=== PATIENT | female | born 1960 | race Two or more races ===

== ENCOUNTER 2024-06-02 20:41 | Inpatient (IN) | payer BC, OTHER ==
[~2024-06-02] VITALS: Ht 160 cm; Wt 85.9 kg
[2024-06-02 21:10] LABS: Basophils # (auto) 0.1 10 ^3/uL (0-0.2); Basophils % (auto) 0.5 % (0.0-2.0); Eosinophils # (auto) 0 10 ^3/uL (0-0.8); Eosinophils % (auto) 0.1 % (0.0-7.0); Hematocrit 39.8 % (36.0-46.0); Hemoglobin 13.1 g/dL (12.2-16.2); Lymphocytes # (auto) 1.3 10 ^3/uL (0.4-5.4); Lymphocytes % (auto) 8.2 % (10.0-50.0); Mean Corpuscular Volume 87.8 fL (80.0-100.0); Monocytes # (auto) 0.8 10 ^3/uL (0-1.3); Monocytes % (auto) 5.1 % (0.0-12.0); Neutrophils # (auto) 13.5 10 ^3/uL (1.6-8.6); Neutrophils % (auto) 86.1 % (37.0-80.0); Nucleated Red Blood Cells % 0.2 %; Platelet Count (auto) 326 10^3/uL (140-450); Red Blood Cells 4.53 10^6/uL (4.0-5.20); Red Cell Distribution Width 13.7 % (11.8-14.3); White Blood Cell 15.7 10^3/uL (4.4-10.8)
[2024-06-02 21:23] LABS: Chloride 107 mmol/L (98-107); Sodium 138 mmol/L (136-145)
[2024-06-02 21:24] LABS: Anion Gap 12 (5-15)
[2024-06-02 21:29] LABS: BUN/Creatinine Ratio 19.1 (10.0-20.0); Blood Urea Nitrogen 18 mg/dL (9-23); Calcium 10.6 mg/dL (8.7-10.4); Carbon Dioxide 19 mmol/L (20-31); Glucose 144 mg/dL (74-106); Potassium 3.5 mmol/L (3.5-5.1)
--- NOTE | 2024-06-02 21:32 | ED.PDOC ---
History of Present Illness HPI Comments 63 y/o F, with a history of CVA, HLD, HTN, hypothyroidism, is [id number] daughter for c/o non-radiating, left-sided chest pain, nausea, vomiting, headache, dizziness, and fever, today. Patient is a Nepalese speaker and, per daughter, who is acting as her blood tester, endorses on unprovoked onset of symptoms at 1300, this evening. She denies any shortness of breath, arm pain, hematemesis, chills, or other associated symptoms or modifiers at this time. Chief Complaint: Chest Pain Time Seen by MD: 21:10 Reviewed Notes: Nurses Notes, Medications, Allergies Allergies: Coded Allergies: NO KNOWN ALLERGIES (Unverified , 06/02/24) Information Source: Patient Mode of Arrival: Ambulatory Severity: Moderate Timing: Hours Duration: Since onset Prehospital treatment: None Past Medical History PAST MEDICAL HISTORY: CVA, High Lipids, HTN, Thyroid (hypothyroidism) Surgical History: Denies all surgeries SOCIAL CONTACT WORKER History: Denies all SOCIAL CONTACT WORKER Hx Family History Family History: Unknown Social History Smoker: Non-Smoker Alcohol: Denies ETOH Use Drugs: Denies Drug Use Lives In: Home All Other Systems: Reviewed and Negative (negative unless stated in HPI) Physical Exam General Appearance: No Apparent Distress, Normal HEENT: Normal ENT Inspection, Pharynx Normal, TMs Normal Neck: Full Range of Motion, Non-Tender, Normal, Normal Inspection Respiratory: Chest Non-Tender, Lungs Clear, No Accessory Muscle Use, No Respiratory Distress, Normal Breath Sounds Cardiovascular: No Edema, No JVD, No Murmur, No Gallop, Normal Peripheral Pu lses, Regular Rate/Rhythm Breast Exam: Deferred Gastrointestinal: No Organomegaly, Non Tender, No Pulsatile Mass, Normal Bowel Sounds, Soft Genitalia: Deferred Pelvic: Deferred Rectal: Deferred Extremities: No calf tenderness, Normal capillary refill, Normal inspection, Normal range of motion, Non-tender, No pedal edema Musculoskeletal : Apperance: Normal Neurologic: Alert, 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 Was a procedure done?: No Differential Dx Considerations may include: IN, ACS, costochondritis, pericarditis, viral syndrome, URI, among others X-Ray, Labs, Meds, VS Vital Signs Date Time Temp Pulse Resp B/P (MAP) Pulse Ox O2 Delivery O2 Flow Rate FiO2 06/02/24 22:50 81 20 99 Room Air* 0 21 06/02/24 22:48 81 20 151/71 06/02/24 22:42 20 81 151/71 (97) 99 06/02/24 21:54 83 06/02/24 20:52 81 06/02/24 20:50 100.7 81 18 154/71 (98) 97 100.7 Lab Test 06/02/24 21:40 06/02/24 20:58 Range/Units Lactic Acid Level 1.7 0.4-2.0 mmol/L Troponin I High Sensitivity 60 *H 62 *H </=34 ng/L White Blood Count 15.7 H 4.4-10.8 10^3/uL Red Blood Count 4.53 4.0-5.20 10^6/uL Hemoglobin 13.1 12.2-16.2 g/dL Hematocrit 39.8 36.0-46.0 % Mean Corpuscular Volume 87.8 80.0-100.0 fL Mean Corpuscular Hemoglobin 29.0 28.0-32.0 pg Mean Corpuscular Hemoglobin Concent 33.0 32.0-36.0 g/dL Red Cell Distribution Width 13.7 11.8-14.3 % Platelet Count 326 140-450 10^3/uL Mean Platelet Volume 7.1 6.9-10.8 fL Neutrophils (%) (Auto) 86.1 H 37.0-80.0 % Lymphocytes (%) (Auto) 8.2 L 10.0-50.0 % Monocytes (%) (Auto) 5.1 0.0-12.0 % Eosinophils (%) (Auto) 0.1 0.0-7.0 % Basophils (%) (Auto) 0.5 0.0-2.0 % Neutrophils # (Auto) 13.5 H 1.6-8.6 10 ^3/uL Lymphocytes # (Auto) 1.3 0.4-5.4 10 ^3/uL Monocytes # (Auto) 0.8 0-1.3 10 ^3/uL Eosinophils # (Auto) 0 0-0.8 10 ^3/uL Basophils # (Auto) 0.1 0-0.2 10 ^3/uL Nucleated Red Blood Cells 0.2 % Sodium Level 138 136-145 mmol/L Potassium Level 3.5 3.5-5.1 mmol/L Chloride Level 107 98-107 mmol/L Carbon Dioxide Level 19 L 20-31 mmol/L Anion Gap 12 5-15 Blood Urea Nitrogen 18 9-23 mg/dL Creatinine 0.94 0.550-1.02 mg/dL Glomerular Filtration Rate Calc 67 >90 mL/min BUN/Creatinine Ratio 19.1 10.0-20.0 Serum Glucose 144 H 74-106 mg/dL POC Glucose 143 H 70-106 mg/dl Calcium Level 10.6 H 8.7-10.4 mg/dL Current Medications Medications (Trade) Dose Ordered Sig/Fatmata Route Start Time Stop Time Status Last Admin Sodium Chloride 1,000 ml @ 1,000 mls/hr Q1H ONCE IV 06/02/24 21:15 06/02/24 22:14 DC 06/02/24 22:40 Ondansetron HCl (Zofran) 4 mg ONCE ONCE IV 06/02/24 21:15 06/02/24 21:16 DC 06/02/24 22:47 Famotidine (Pepcid Injection) 20 mg ONCE ONCE IV 06/02/24 21:15 06/02/24 21:16 DC 06/02/24 22:47 Morphine Sulfate 4 mg ONCE ONCE IV 06/02/24 21:15 06/02/24 21:16 DC 06/02/24 22:48 [place] [address] Ph: [phone] DIAGNOSTIC IMAGING Diagnostic Imaging Report : [id number] Signed PATIENT: AMNA RAINEY ACCT: [id number] UNIT: [id number] : 1960 LOC: ER ROOM / BED: / AGE / SEX: 63 / F ADM STATUS: REG ER SERVICE 00 ORDERING PHYSICIAN: NIVIA AARON MD PROCEDURE(s): HWOCT - HEAD WITHOUT CONTRAST REASON: ams, nausea, vomiting ORDER NUMBER(s): [id number], ACCESSION NUMBER(s): [id number] CT HEAD WITHOUT CONTRAST INDICATION: ams, nausea, vomiting COMPARISON: None TECHNIQUE: CT of the head without intravenous contrast. RADIATION DOSE: CTDIvol: 52.21 mGy, DLP: 941.49 mGy*cm FINDINGS: There is no evidence of intracranial hemorrhage, infarct, extra-axial collection, mass effect, midline shift, herniation or hydrocephalus. Several small scattered foci of calcification are noted in both cerebral hemispheres most likely representing granulomas. The ventricles, sulci and cisterns are normal. The araujo-white differentiation is intact. Visualized paranasal sinuses and mastoid air cells are clear. Soft tissues and osseous structures are unremarkable. IMPRESSION: No acute intracranial abnormality identified. ATED BY: MANUEL CLEVELAND MD DICTATED DATE/TIME: 06/02/242146 SIGNED BY: MANUEL CLEVELAND MD SIGNED DATE/TIME: 06/02/242146 CC: [place] [address] Ph: [phone] DIAGNOSTIC IMAGING Diagnostic Imaging Report : [id number] Signed PATIENT: AMNA RAINEY ACCT: [id number] UNIT: [id number] : 1960 LOC: ER ROOM / BED: / AGE / SEX: 63 / F ADM STATUS: REG ER SERVICE 00 ORDERING PHYSICIAN: NIVIA AARON MD PROCEDURE(s): CXRP - CHEST PORTABLE REASON: headache, htn, nausea ORDER NUMBER(s): [id number], ACCESSION NUMBER(s): [id number] CHEST RADIOGRAPH Indication: headache, htn, nausea Technique: Single frontal view of the chest was obtained Comparison: None FINDINGS: Lines and Tubes: None Lungs: No focal consolidation. Pleura: No effusion. No pneumothorax. Cardiomediastinal contours: Unremarkable Bones: No acute osseous abnormality. IMPRESSION: 1. No acute cardiopulmonary disease. ATED BY: VALARIE RIVER Jr., DO DICTATED DATE/TIME: 06/02/242130 SIGNED BY: VALARIE RIVER Jr., DO SIGNED DATE/TIME: 06/02/242130 CC: Time of 1ST Reevaluation: 21:40 Reevaluation 1ST: Unchanged Patient Education/Counseling: Diagnosis, Treatment Family Education/Counseling: No Family Present Departure 1 Departure Time of Disposition: 23:26 (Patient presented with chest pain that was concerning for possible STEMI, ACS, PE, Pneumonia, Muscle Strain, COPD, Dissection. Data: 1. I ordered and reviewed the result of at least 3 labs including a CBC, BMP, and Troponin. 2. I independently interpreted the following tests: EKG which shows sinus tachycardia and Chest X-ray which shows benign chest.Risk:This patient has a high risk of morbidity due to further diagnostic testing or treatment and may suffer from an acute cardiac or respiratory disorder. Workup reveals concern for ACS and also with a fever but patient is not septic and patient should be admitted for further workup and possible expert consultation. We will not give patient full fluid boluses patient appears mildly volume overloaded.) Impression: Primary Impression: Acute chest pain Additional Impression: Fever Qualified Codes: R50.9 - Fever, unspecified Disposition: ADMITTED INPATIENT Admit to: Med Surg Condition: Serious Critical Care Note Critical Care Time?: Yes Critical care comment: Acute chest pain Authorized and Performed by: Nivia Aaron MD Total critical care time: Approximately 39 minutes Due to a high probability of clinically significant, life threatening deterioration, the patient required my highest level of preparedness to intervene emergently and I personally spent this critical care time directly and personally managing the patient. This critical care time included obtaining a history; examining the patient; pulse oximetry; ordering and review of studies; arranging urgent treatment with development of a management plan; evaluation of patient's response to treatment; frequent reassessment; and, discussions with other providers. This critical care time was performed to assess and manage the high probability of imminent, life-threatening deterioration that could result in multi-organ failure. It was exclusive of separately billable procedures and treating other patients and teaching time. Please see my other sections and the rest of the note for further information on patient assessment and treatment. Stability Stability form required: No Heart Score Heart Score: Heart Score Response (Comments) Value History N/A 0 EKG N/A 0 Age N/A 0 Risk Factors N/A 0 Troponin N/A 0 Total 0 I personally scribed for NIVIA AARON MD ([email or web address]) on 06/02/24 at 21:32. Electronically submitted by Meir Nicholas ([email or web address]). I personally scribed for NIVIA AARON MD ([email or web address]) on 06/02/24 at 22:05. Electronically submitted by Meir Nicholas ([email or web address]). NIVIA AARON MD Jun 02, 2024 21:32
--- NOTE | 2024-06-02 21:50 | DVH ---
CT HEAD WITHOUT CONTRAST INDICATION: ams, nausea, vomiting COMPARISON: None TECHNIQUE: CT of the head without intravenous contrast. RADIATION DOSE: CTDIvol: 52.21 mGy, DLP: 941.49 mGy*cm FINDINGS: There is no evidence of intracranial hemorrhage, infarct, extra-axial collection, mass effect, midli ne shift, herniation or hydrocephalus. Several small scattered foci of calcification are noted in bot h cerebral hemispheres most likely representing granulomas. The ventricles, sulci and cisterns are no rmal. The araujo-white differentiation is intact. Visualized paranasal sinuses and mastoid air cells ar e clear. Soft tissues and osseous structures are unremarkable. IMPRESSION: No acute intracranial abnormality identified.
[2024-06-02] MEDS: SODIUM CHLORIDE 0.9% 1,000 ML IV ONE (22:40)
[2024-06-02] MEDS: ONDANSETRON HCL 4 MG/2 ML VIAL IV ONE (22:47)
[2024-06-02] MEDS: FAMOTIDINE (10MG/ML) 2ML VL IV ONE (22:47)
[2024-06-02] MEDS: MORPHINE SULFATE 4 MG/ML SYR/VIAL IV ONE (22:48)
[2024-06-02 22:50] VITALS: PULSE 81; RESP 20; O2SAT 99
[2024-06-03] VITALS (9 sets, daily range): BP systolic 109–153; BP diastolic 51–71; PULSE 64–76; RESP 16–18; TEMP 97.6–99.1; O2SAT 94–97
[2024-06-03] MEDS: CEFEPIME 2GM/50ML NS 50 ML IV ONE (00:59)
[2024-06-03] MEDS ORDERED: HYDROcodone-ACET 5/325MG TAB PO PRN ×2 (01:45→07:30)
[2024-06-03] MEDS ORDERED: VANCOMYCIN PER PHARMACY 0 MG IV SCH (01:45)
[2024-06-03] MEDS: VANCOMYCIN 1GM/250ML KIT 200 ML IV ONE ×2 (02:08)
--- NOTE | 2024-06-03 02:10 | DVHHPRES ---
History of Present Illness Resident Creating Document: DARIUS FRAZIER RESDIENT History of Present Illness This is a 63-year-old female with past medical history of CVA, coronary artery disease, dyslipidemia, hypertension, hypothyroidism brought to the hospital due to at the mental status. Per patient's daughter, today at 6:00 p.m. she got chest pain and shortness of breaths at work place, upon blood pressure measurement found to of high BP 200, recommended to go to ER, subsequently the patient get more confused and altered. He also reported fever, dysuria, frequency, nausea, vomiting, headache, and dizziness. She denies cough, abdominal, bowel habit changes, or any new onset motor or sensory deficits. PMHx: CVA, coronary artery disease, dyslipidemia, hypertension, hypothyroidism PSHx: Not significant Family history: Noncontributory Social history: Ex-smoker, denies any other drug use Home medication: Losartan, levothyroxine Allergic history: No known allergy Review of Systems Review of Systems Patient was altered, review of systems could not obtain. History was taken from patient's daughter. Allergies: Coded Allergies: NO KNOWN ALLERGIES (Unverified , 06/02/24) Medications Current Medications Medications Dose Ordered Sig/Fatmata Route Start Time Stop Time Status Last Admin Dose Admin Acetaminophen 650 mg Q6HP PRN PO 06/03/24 01:45 Acetaminophen/ Hydrocodone Bitart 1 tab Q4HP PRN PO 06/03/24 01:45 Enoxaparin Sodium 40 mg DAILY SC 06/03/24 10:00 Aspirin 81 mg DAILY PO 06/03/24 10:00 Atorvastatin Calcium 40 mg HS PO 06/03/24 22:00 Vancomycin HCl 0 ml @ 0 mls/hr UD IV 06/03/24 01:45 UNV Piperacillin Sod/ Tazobactam Sod 100 ml @ 25 mls/hr Q8HR IV 06/03/24 06:00 Pantoprazole Sodium 40 mg DAILY IV 06/03/24 10:00 Sodium Chloride 1,000 ml @ 75 mls/hr [id number] IV 06/03/24 01:45 Lisinopril 5 mg DAILY PO 06/03/24 10:00 UNV Exam Vital Signs Vital Signs Date Time Temp Pulse Resp B/P (MAP) Pulse Ox O2 Delivery O2 Flow Rate FiO2 06/03/24 01:34 83 06/02/24 23:49 20 142/65 06/02/24 22:50 99 Room Air* 0 21 06/02/24 20:50 100.7 100.7 Exam General Appearance: Alert, Oriented to person, disoriented to time and place, lethargic HEENT: Atraumatic, PERRLA, EOMI, Mucous membrane moist/pink Respiratory: Clear to auscultation, Normal air movement Cardiovascular: Regular rate, Normal S1, Normal S2, No murmurs, no chest wall tenderness Abdominal: Mild suprapubic tenderness Extremities: No clubbing, No cyanosis, No edema, Normal pulses, No te nderness/swelling Skin: No rashes, No breakdown, No significant lesion Neuro: Normal gait, Normal speech, Strength at 5/5 X4 ext, Normal tone, Sensation intact, Cranial nerves 3-12 NL, Reflexes 2+ Psych/Mental Status: Mental status NL, Mood NL Labs/Xrays Labs Test 06/03/24 01:36 06/02/24 23:47 06/02/24 21:40 06/02/24 20:58 Range/Units Troponin I High Sensitivity 76 *H </=34 ng/L Lactic Acid Level 1.7 0.4-2.0 mmol/L White Blood Count 15.7 H 4.4-10.8 10^3/uL Red Blood Count 4.53 4.0-5.20 10^6/uL Hemoglobin 13.1 12.2-16.2 g/dL Hematocrit 39.8 36.0-46.0 % Mean Corpuscular Volume 87.8 80.0-100.0 fL Mean Corpuscular Hemoglobin 29.0 28.0-32.0 pg Mean Corpuscular Hemoglobin Concent 33.0 32.0-36.0 g/dL Red Cell Distribution Width 13.7 11.8-14.3 % Platelet Count 326 140-450 10^3/uL Mean Platelet Volume 7.1 6.9-10.8 fL Neutrophils (%) (Auto) 86.1 H 37.0-80.0 % Lymphocytes (%) (Auto) 8.2 L 10.0-50.0 % Monocytes (%) (Auto) 5.1 0.0-12.0 % Eosinophils (%) (Auto) 0.1 0.0-7.0 % Basophils (%) (Auto) 0.5 0.0-2.0 % Neutrophils # (Auto) 13.5 H 1.6-8.6 10 ^3/uL Lymphocytes # (Auto) 1.3 0.4-5.4 10 ^3/uL Monocytes # (Auto) 0.8 0-1.3 10 ^3/uL Eosinophils # (Auto) 0 0-0.8 10 ^3/uL Basophils # (Auto) 0.1 0-0.2 10 ^3/uL Nucleated Red Blood Cells 0.2 % Sodium Level 138 136-145 mmol/L Potassium Level 3.5 3.5-5.1 mmol/L Chloride Level 107 98-107 mmol/L Carbon Dioxide Level 19 L 20-31 mmol/L Anion Gap 12 5-15 Blood Urea Nitrogen 18 9-23 mg/dL Creatinine 0.94 0.550-1.02 mg/dL Glomerular Filtration Rate Calc 67 >90 mL/min BUN/Creatinine Ratio 19.1 10.0-20.0 Serum Glucose 144 H 74-106 mg/dL POC Glucose 143 H 70-106 mg/dl Calcium Level 10.6 H 8.7-10.4 mg/dL Assessment/Plan Assessment/Plan Acute metabolic encephalopathy, likely due to sepsis Sepsis, likely due to UTI NSTEMI, type 2, likely due to above Head CT scan shows no acute intracranial abnormalities Urine/blood culture Empiric antibiotic vancomycin and Zosyn IV fluid History of coronary artery disease History of CVA, with no residual deficit History of hypertension History of dyslipidemia Hypothyroidism Continue home meds DIET: NPO DVT PROPHYLAXIS: Lovenox GI PROPHYLAXIS:: Protonix CODE STATUS: Goal of care discussed for more than 18 minutes, full code DISPOSITION: Med surge Patient's status and plan discussed with the patient's daughter and son at the bedside. Case discussed with Dr. Bowers Plan discussed with: Patient, Other (RN) My Orders Orders - DARIUS FRAZIER Procedure Category Date Status Time Admit ADMIT 06/03/24 Transmitted 01:34 Code Status CODE 06/03/24 Transmitted 01:34 Vital Signs ISAIAH 06/03/24 In Process 01:34 Review Orders With ISAIAH 06/03/24 In Process Adm. 01:34 Consistent DIET 06/03/24 Transmitted Carb(Ccho)Diabetes Breakfast Acetaminophen Tablet PHA 06/03/24 In Process (Tylenol Tablet) 01:45 Notify Md Of Changes ISAIAH 06/03/24 In Process From Base 01:34 Advance Directive ISAIAH 06/03/24 In Process 01:34 Echo 2d Mode Cardiac US 06/03/24 Logged DOP 01:34 Urinalysis LAB 06/03/24 In Process 01:34 Lipid Panel LAB 06/03/24 Logged 01:34 Patient Condition ORDERS 06/03/24 Transmitted 01:34 Allergies ISAIAH 06/03/24 In Process 01:34 Hydrocodone-Acet PHA 06/03/24 In Process 5/325mg Tab ([place] 01:45 Hemoglobin A1c LAB 06/03/24 Logged 01:34 Enoxaparin Sodium PHA 06/03/24 In Process (Lovenox) 10:00 Stat Ekg For Chest ISAIAH 06/03/24 In Process Pain 01:34 Notify Md Of Changes [facility] 06/03/24 In Process From Base 01:34 Tapper Operator For ISAIAH 06/03/24 In Process 24 Hours 01:34 Emergency Dysrhythmia ISAIAH 06/03/24 In Process Protocol 01:34 Rhythm Strips Once ISAIAH 06/03/24 In Process Every Shift 01:34 Urine Bacterial MERT 06/03/24 Logged Culture 01:34 Drug Screen LAB 06/03/24 Logged 01:34 Mrsa Screen MERT 06/03/24 Logged 01:34 Aspirin Tablet PHA 06/03/24 In Process 10:00 Atorvastatin (Lipitor) PHA 06/03/24 In Process 22:00 Vancomycin Per PHA 06/03/24 Pending Pharmacy 01:45 Piperacillin-Tazob PHA 06/03/24 In Process 3.375gm (Zosyn 3.375g 06:00 Pantoprazole PHA 06/03/24 In Process (Protonix) 10:00 Magnesium LAB 06/03/24 Logged 01:34 Vitamin B12 LAB 06/03/24 Logged 01:34 Vitamin D, 25-Hydroxy LAB 06/03/24 Logged 01:34 Thyroid Stimulating LAB 06/03/24 Logged Hormone 01:34 Ammonia LAB 06/03/24 Logged 01:34 Sodium Chloride 0.9% PHA 06/03/24 In Process 01:45 Sodium Chloride 0.9% PHA 06/03/24 In Process 01:45 Complete Blood Count LAB 06/03/24 Logged 04:00 Comprehensive LAB 06/03/24 Logged Metabolic Panel 04:00 Lisinopril Tablet PHA 06/03/24 Logged (Zestril Tablet) 10:00 Lisinopril Tablet PHA 06/03/24 Logged (Zestril Tablet) 02:15 Amlodipine Tablet PHA 06/03/24 Logged (Norvasc Tablet) 02:15 Date of Service: Jun 03, 2024 Billing Provider: DENAE BOWERS MD Common Visit Codes: 61704-DEXYTUA INP/OBS CARE (HIGH) Secondary Visit Codes: 72574-APBSBPJL CARE PLAN 30 MINUTES DARIUS FRAZIER RESDIENT Jun 03, 2024 02:10 DENAE BOWERS MD Jun 03, 2024 11:05
[2024-06-03] MEDS: SODIUM CHLORIDE 0.9% 1,000 ML IV ONE (02:14)
[2024-06-03] MEDS: amLODIPine BESYLATE 5 MG TAB PO ONE (02:45)
[2024-06-03] MEDS: LISINOPRIL 5 MG TAB PO ONE (02:46)
[2024-06-03] MEDS: PANTOPRAZOLE 40 MG/10 ML VIAL INJ IV ONE (02:51)
[2024-06-03] MEDS: ASPirin 81 mg TAB PO ONE (02:52)
[2024-06-03] MEDS: ATORVASTATIN 20 MG TAB PO ONE (02:53)
[2024-06-03] MEDS: ACETAMINOPHEN 325 MG TAB PO PRN (02:53)
[2024-06-03 02:55] LABS: Magnesium 1.9 mg/dL (1.6-2.6)
[2024-06-03 04:45] LABS: Urine Blood Negative /uL (Negative); Urine Clarity Clear (Clear); Urine Color Yellow (Yellow); Urine Mucus FEW (None Seen); Urine Protein, UAD 1+ (Negative); Urine Specific Gravity 1.023 (1.001-1.035); Urine Squamous Epithelial Cell FEW /hpf (<5); Urine Urobilinogen Normal (Negative); Urine WBC 4 /HPF (0-5)
[2024-06-03] MEDS: SODIUM CHLORIDE 0.9% 1,000 ML IV SCH (04:50)
[2024-06-03 05:05] LABS: Opiate Scree,Urine Pos (NEGATIVE)
[2024-06-03 05:07] LABS: Amphetamine Screen, Urine Neg (NEGATIVE); Barbiturate Scree,Urine Neg (NEGATIVE); Benzodiazephine Screen, Urine Neg (NEGATIVE); Cannabinoid Screen, Urine Neg (NEGATIVE); Cocaine Screen, Urine Neg (NEGATIVE); Phencyclidine Screen, Urine Neg (NEGATIVE)
[2024-06-03 05:12] LABS: COVID19 ANTIGEN SOFIA FIA NEGATIVE (NEGATIVE)
[2024-06-03 05:12] LABS: Rapid Influenza A Negative (Negative); Rapid Influenza B Negative (Negative)
[2024-06-03] MEDS: PIPERACILLIN-TAZOB 3.375GM 100 ML IV SCH (06:01)
[2024-06-03 06:47] LABS: Basophils # (auto) 0.1 10 ^3/uL (0-0.2); Basophils % (auto) 0.6 % (0.0-2.0); Eosinophils # (auto) 0 10 ^3/uL (0-0.8); Hematocrit 32.9 % (36.0-46.0); Hemoglobin 11.3 g/dL (12.2-16.2); Lymphocytes # (auto) 1.1 10 ^3/uL (0.4-5.4); Lymphocytes % (auto) 5.8 % (10.0-50.0); Mean Corpuscular Hemoglobin 30.3 pg (28.0-32.0); Mean Corpuscular Hgb Conc. 34.2 g/dL (32.0-36.0); Mean Corpuscular Volume 88.4 fL (80.0-100.0); Neutrophils # (auto) 17.4 10 ^3/uL (1.6-8.6); Neutrophils % (auto) 88.6 % (37.0-80.0); Platelet Count (auto) 279 10^3/uL (140-450); Red Blood Cells 3.72 10^6/uL (4.0-5.20); Red Cell Distribution Width 13.7 % (11.8-14.3); White Blood Cell 19.6 10^3/uL (4.4-10.8)
--- NOTE | 2024-06-03 06:56 | ECG ---
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
[2024-06-03 07:13] LABS: Albumin 4.1 g/dL (3.2-4.8); Anion Gap 8 (5-15); Aspartate Aminotransferase 40 U/L (13-40); BUN/Creatinine Ratio 18.5 (10.0-20.0); Bilirubin, Total 0.6 mg/dL (0.2-1.0); Blood Urea Nitrogen 15 mg/dL (9-23); Calcium 9.3 mg/dL (8.7-10.4); Carbon Dioxide 21 mmol/L (20-31); Sodium 140 mmol/L (136-145); Total Protein 6.7 g/dL (5.7-8.2)
[2024-06-03 07:15] LABS: Alanine Aminotransferase 46 U/L (7-40); Alkaline Phosphatase 147 U/L (46-116); Chloride 111 mmol/L (98-107); Glucose 130 mg/dL (74-106); Potassium 3.4 mmol/L (3.5-5.1)
--- NOTE | 2024-06-03 07:16 | ECG ---
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
[2024-06-03] MEDS ORDERED: ACETAMINOPHEN 500 MG TAB or CAP PO PRN (07:30)
[2024-06-03] MEDS ORDERED: ACETAMINOPHEN 325 MG TAB PO PRN (07:30)
--- NOTE | 2024-06-03 07:30 | ECG ---
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
[2024-06-03] MEDS: ENOXAPARIN SOD 40 MG/0.4 ML SYRINGE SC SCH (09:30)
[2024-06-03] MEDS: PANTOPRAZOLE 40 MG/10 ML VIAL INJ IV SCH (09:30)
[2024-06-03] MEDS: LISINOPRIL 5 MG TAB PO SCH (09:31)
[2024-06-03] MEDS: ASPirin 81 mg TAB PO SCH (09:31)
[2024-06-03] MEDS ORDERED: LOSA-534 PO (10:26)
[2024-06-03] MEDS ORDERED: LEVO150T10 PO (10:26)
[2024-06-03] MEDS ORDERED: ATOR40TA52 PO (10:26)
[2024-06-03] MEDS ORDERED: AML5T PO (10:27)
--- NOTE | 2024-06-03 11:22 | DVHPNRES ---
Progress Note Date Seen: Jun 03, 2024 Resident Creating Document: ELENA BOONE RESIDENT Medical Necessity Reason Pt with a Central, PICC or Fol: No Subjective Review of Systems Ms. Lombardi is a 63-year-old female with past medical history of CVA, hypertension, hypothyroidism, dyslipidemia who presented to the hospital with a chief complaint of confusion, shortness of breaths, chest pain and blood pressure for a day. Patient works at the [employer] when she experienced chest pain at around 1:00 p.m. on 06/02, radiating to the back, which was pressure-like, and lasted for 15 minutes associated with nausea, diaphoresis, shortness of breath, he checked her blood pressure which was 178/100 mmHg, she also reported fever, chills nausea and vomiting 5 X yesterday which was yellowish but denies any cough or phlegm, abdominal pain, dysuria or diarrhea. Patient reports taking 3 hypertensive is reporting compliance with the meds but does not remember the names. On arrival patient was febrile at 100.1 F, blood pressure was 164 systolic, CIWA saturating 94 on room air. Lactic acidosis unremarkable. WBC was 15 with increased to 19. Patient was started on IV Zosyn and vancomycin 06/02. Past medical history: See above Social chronic smoker denies drinking or illicit drug use Patient seen and examined and ultimately. Reports feeling better. Abdomen is soft and nontender. CT abdomen completed, showed Mild nonspecific fat stranding adjacent to the bilateral adrenal glands.Descending colon and Sigmoid diverticulosis without diverticulitis. 1.4 x 1.6 cm soft tissue density over the pancreatic tail. Contrast-enhanced MRI should be considered for further evaluation. Objective vital signs Vital Sign Date Time Temp Pulse Resp B/P (MAP) Pulse Ox O2 Delivery O2 Flow Rate FiO2 06/03/24 09:31 111/54 06/03/24 08:30 98.2 71 18 97 98.2 06/03/24 04:38 Room Air* 0 21 Total Intake and Output 06/02/24 06/02/24 06/03/24 15:00 23:00 07:00 Intake Total 1460 ml Balance 1460 ml medications Current Medications Medications Dose Ordered Sig/Fatmata Route Start Time Stop Time Status Last Admin Dose Admin Enoxaparin Sodium 40 mg DAILY SC 06/03/24 10:00 06/03/24 09:30 40 MG Aspirin 81 mg DAILY PO 06/03/24 10:00 06/03/24 09:31 81 MG Atorvastatin Calcium 40 mg HS PO 06/03/24 22:00 Vancomycin HCl 0 ml @ 0 mls/hr UD IV 06/03/24 01:45 UNV Piperacillin Sod/ Tazobactam Sod 100 ml @ 25 mls/hr Q8HR IV 06/03/24 06:00 06/03/24 06:01 25 MLS/HR Pantoprazole Sodium 40 mg DAILY IV 06/03/24 10:00 06/03/24 09:30 40 MG Sodium Chloride 1,000 ml @ 75 mls/hr [id number] IV 06/03/24 01:45 06/03/24 04:50 75 MLS/HR Lisinopril 5 mg DAILY PO 06/03/24 10:00 06/03/24 09:31 5 MG Acetaminophen 500 mg Q4HPRN PRN PO 06/03/24 07:30 Acetaminophen/ Hydrocodone Bitart 1 tab Q4HPRN PRN PO 06/03/24 07:30 Acetaminophen 650 mg Q6HP PRN PO 06/03/24 07:30 Examination Patient lying in bed, in no acute distress General: Obese, afebrile, palor, mucosae are moist Cardiovascular: Regular S1 and S2. No murmurs, gallops or rubs. No JVD elevation. 1+ pitting edema bilaterally Respiratory: Normal B/L air entry on room air. Clear lung sounds on auscultation Abdomen: Soft, nontender, nondistended, normoactive bowel sounds, no rebound tenderness, no organomegaly, no masses Genitourinary: Deferred MSK/skin: Mobilizes 4 limbs. Skin is dry and warm Neurological: No motor, no sensitive deficits, normal speech. Pupils are isocoric and reactive. Psych/Mental Status: A/Ox3 laboratory and microbiology Laboratory Tests 06/03/24 05:38 Test 06/03/24 05:38 Range/Units Serum Glucose 130 H 74-106 mg/dL Labs and/or images reviewed: Labs reviewed by me, Image(s) reviewed by me Problem List/Assessment/Plan Problem List/Assessment/Plan Acute metabolic encephalopathy likely secondary to sepsis Sepsis secondary to probable UTI versus gastroenteritis ? Pancreatic mass versus sepsis Head CT showed no acute intracranial abnormality. Ammonia, B12 within normal limits WBC uptrending to 19 with neutrophilic leukocytosis IV Zosyn starting 06/03 and IV vancomycin 06/02 IV NS running at 75 cc an hour Received 1 dose of IV cefepime 06/02 CT abdomen completed, showed Mild nonspecific fat stranding adjacent to the bilateral adrenal glands.Descending colon and Sigmoid diverticulosis without diverticulitis. 1.4 x 1.6 cm soft tissue density over the pancreatic tail. Contrast-enhanced MRI should be considered for further evaluation. Blood cultures pending Tumor markers ordered. MRI with IV contrast ordered. Hypertensive urgency NSTEMI type 2 Dyslipidemia 10 year ASCVD risk 11.5 Atorvastatin 40 mg daily Amlodipine 5 mg daily, losartan 50 mg daily Hypothyroidism Continue levothyroxine 100 mcg daily History of CVA Continue aspirin and atorvastatin Hypokalemia Supplemented Vitamin-D deficiency Supplemented Diet: Full liquid Lovenox 40 mg sc daily Plan discussed with patient in which all questions have been answered Goals of care with the patient for more than 20 minutes, full code status Case discussed with Dr. Baird Plan discussed with: Patient My Orders My Orders Orders - ELENA BOONE Procedure Category Date Status Time Acetaminophen Tab Or PHA 06/03/24 In Process Cap (Tylenol Tablet 07:30 Hydrocodone-Acet PHA 06/03/24 In Process 5/325mg Tab (Weld 07:30 Kub Abdomen Single XY 06/03/24 Logged View 09:28 Date of Service: Jun 03, 2024 Billing Provider: JOSE BAIRD DO Common Visit Codes: [id number] INP/OBS CARE(HIGH) ELENA BOONE Jun 03, 2024 11:22 JOSE BIARD DO Jun 06, 2024 17:46
--- NOTE | 2024-06-03 13:47 | DVH ---
Exam: CT CT AB PEL WO CON-NO ORAL OR IV History: sirs/sepsis Comparison Study: None available at time of dictation. TECHNIQUE: Multidetector CT of the abdomen and pelvis without IV contrast. Axial, coronal and sagitta l multiplanar reformats were obtained from the axial data set by the technologist. Radiation Dose Information: CT Dose: CTDI volume is 15.52 mGy. Dose-length product is 872.47 mGy*cm FINDINGS: Bibasilar atelectasis. Mild cardiomegaly. Status post cholecystectomy. Mild hepatomegaly. Otherwise, liver, and spleen unremarkable. Mild non specific fat stranding adjacent to the adrenal glands. Otherwise adrenal glands unremarkable. There is mild fatty infiltration of the pancreas with a 1.4 x 1.6 cm soft tissue density over the pancreati c tail. Mild nonspecific bilateral perirenal fat stranding. No hydronephrosis bilaterally. No renal calculi b ilaterally. Bilateral ureters and urinary bladder are unremarkable. Uterus and adnexa are unremarkabl e. Stomach is unremarkable. Small bowel loops unremarkable. Appendix is unremarkable. Descending colon and Sigmoid diverticulosis without diverticulitis. No evidence of intraperitoneal free air or free fluid. No evidence of aortic aneurysm. [id number] atherosclerotic calcification of the aorta and bilat eral iliacs. No significant lymphadenopathy. Small fat containing umbilical hernia. Mild fat stranding with subcutaneous emphysema of the right ve ntral mid abdominal subcutaneous fat. Bilateral L5 chronic pars defect. No destructive osseous lesio ns noted. IMPRESSION: No evidence of acute abdominopelvic abnormalities. Mild nonspecific fat stranding adjacent to the bilateral adrenal glands. Descending colon and Sigmoid diverticulosis without diverticulitis. 1.4 x 1.6 cm soft tissue density over the pancreatic tail. Contrast-enhanced MRI should be considere d for further evaluation.
[2024-06-03] MEDS: VANCOMYCIN 750MG KIT 100 ML IV SCH (16:00)
[2024-06-03] MEDS ORDERED: GADOTERATE MEG 10 MMOL/20ml INJ (0.5MMOL/ml) IV ONE (17:30)
--- NOTE | 2024-06-03 17:56 | DVH ---
Date: 06/03/2024 02:18 PM Examination: XY KUB ABDOMEN SINGLE VIEW History: N/V Comparison: None TECHNIQUE: Frontal views of the abdomen was obtained. FINDINGS: Bowel gas pattern is unremarkable. The lung bases are unremarkable. No acute osseous abnormality identified. IMPRESSION: Nonobstructive bowel gas pattern.
[2024-06-03] MEDS: ERGOCALCIFEROL 50,000 UNIT(1.25MG) CAP PO SCH (18:00)
[2024-06-03] MEDS: ATORVASTATIN 20 MG TAB PO SCH (22:04)
[2024-06-04] VITALS (9 sets, daily range): BP systolic 124–175; BP diastolic 66–77; PULSE 58–70; RESP 16–20; TEMP 97.7–98.3; O2SAT 93–97
[2024-06-04] MEDS: VANCOMYCIN 1GM/250ML KIT 187.5 ML IV ONE (02:40)
[2024-06-04 05:17] LABS: Basophils # (auto) 0.1 10 ^3/uL (0-0.2); Basophils % (auto) 0.5 % (0.0-2.0); Eosinophils # (auto) 0.2 10 ^3/uL (0-0.8); Eosinophils % (auto) 1.3 % (0.0-7.0); Hematocrit 34.1 % (36.0-46.0); Hemoglobin 11.1 g/dL (12.2-16.2); Lymphocytes # (auto) 2.1 10 ^3/uL (0.4-5.4); Lymphocytes % (auto) 16.9 % (10.0-50.0); Mean Corpuscular Hemoglobin 29.1 pg (28.0-32.0); Mean Corpuscular Hgb Conc. 32.7 g/dL (32.0-36.0); Monocytes # (auto) 0.9 10 ^3/uL (0-1.3); Monocytes % (auto) 7.3 % (0.0-12.0); Neutrophils # (auto) 9.3 10 ^3/uL (1.6-8.6); Platelet Count (auto) 276 10^3/uL (140-450); Red Blood Cells 3.83 10^6/uL (4.0-5.20); Red Cell Distribution Width 14.2 % (11.8-14.3); White Blood Cell 12.6 10^3/uL (4.4-10.8)
[2024-06-04 05:30] LABS: Anion Gap 7 (5-15); BUN/Creatinine Ratio 8.5 (10.0-20.0); Calcium 9.8 mg/dL (8.7-10.4); Carbon Dioxide 22 mmol/L (20-31); Magnesium 2.2 mg/dL (1.6-2.6); Potassium 3.5 mmol/L (3.5-5.1); Sodium 143 mmol/L (136-145); Total Protein 6.4 g/dL (5.7-8.2)
[2024-06-04 05:31] LABS: Albumin 3.8 g/dL (3.2-4.8); Bilirubin, Total 0.6 mg/dL (0.2-1.0)
[2024-06-04 05:34] LABS: Alanine Aminotransferase 64 U/L (7-40); Alkaline Phosphatase 146 U/L (46-116); Aspartate Aminotransferase 51 U/L (13-40); Blood Urea Nitrogen 7 mg/dL (9-23); Chloride 114 mmol/L (98-107); Glucose 113 mg/dL (74-106)
[2024-06-04] MEDS: LEVOTHYROXINE SODIUM 100 MCG TAB PO SCH (05:36)
[2024-06-04] MEDS ORDERED: VANCOMYCIN 750mg/150ml 150 ML IV SCH ×4 (08:15→15:00)
[2024-06-04] MEDS: LOSARTAN POTASSIUM 50 MG TAB PO SCH (09:37)
[2024-06-04] MEDS: amLODIPine BESYLATE 5 MG TAB PO SCH (09:37)
--- NOTE | 2024-06-04 12:29 | DVH ---
MRI Abdomen, without and with IV Contrast Exam Date: 06/04/2024 11:11 AM Comparison: CT dated 06/03/2024 History: MASS ON PANCREATIC TAIL F/U FROM CT Technique: Multisequence multiplanar MRI images were obtained of the abomen. Multiphasic imaging obtained without and with intravenous contrast. Findings: Liver: Mild hepatic steatosis. Hepatomegaly. Spleen: Unremarkable. Pancreas: No pancreatic tail lesion. There is mild diffuse atrophy of the pancreas with relative spar ing of the parenchyma in the tail possibly corresponding to soft-tissue fullness seen on CT. Gallbladder and ducts: Post cholecystectomy. The cystic duct, right and left hepatic ducts, common he patic duct, and common bile ducts are unremarkable. The pancreatic duct is within normal limits. Adrenal glands: Unremarkable. Kidneys: Normal enhancement without suspicious lesions or hydronephrosis. Visualized bowel: Grossly unremarkable. Vasculature: Unremarkable. Lymphadenopathy: No evidence for lymphadenopathy. Ascites: Absent. Musculoskeletal: Bone marrow signal is normal. IMPRESSION: No pancreatic tail lesion. There is mild diffuse atrophy of the pancreas with relative sparing of the parenchyma in the tail possibly corresponding to soft-tissue fullness and lesion in question seen on CT dated 06/03/2024.
--- NOTE | 2024-06-04 15:09 | DVHPNRES ---
Progress Note Date Seen: Jun 04, 2024 Resident Creating Document: ELENA BOONE RESIDENT Medical Necessity Reason Pt with a Central, PICC or Fol: No Subjective Review of Systems Ms. Lombardi is a 63-year-old female with past medical history of CVA, hypertension, hypothyroidism, dyslipidemia who presented to the hospital with a chief complaint of confusion, shortness of breaths, chest pain and blood pressure for a day. Patient works at the [employer] when she experienced chest pain at around 1:00 p.m. on 06/02, radiating to the back, which was pressure-like, and lasted for 15 minutes associated with nausea, diaphoresis, shortness of breath, he checked her blood pressure which was 178/100 mmHg, she also reported fever, chills nausea and vomiting 5 X yesterday which was yellowish but denies any cough or phlegm, abdominal pain, dysuria or diarrhea. Patient reports taking 3 hypertensive is reporting compliance with the meds but does not remember the names. On arrival patient was febrile at 100.1 F, blood pressure was 164 systolic, CIWA saturating 94 on room air. Lactic acidosis unremarkable. WBC was 15 with increased to 19. Patient was started on IV Zosyn and vancomycin 06/02. Past medical history: See above Social chronic smoker denies drinking or illicit drug use 06/03-Patient seen and examined and ultimately. Reports feeling better. Abdomen is soft and nontender. CT abdomen completed, showed Mild nonspecific fat stranding adjacent to the bilateral adrenal glands.Descending colon and Sigmoid diverticulosis without diverticulitis. 1.4 x 1.6 cm soft tissue density over the pancreatic tail. Contrast-enhanced MRI should be considered for further evaluation. 06/04-patient seen and examined at the bedside. Tolerating diet. MRI abdomen completed No pancreatic tail lesion. There is mild diffuse atrophy of the pancreas with relative sparing of the parenchyma in the tail possibly corresponding to soft-tissue fullness and lesion in question seen on CT dated 06/03/2024. Objective vital signs Vital Sign Date Time Temp Pulse Resp B/P (MAP) Pulse Ox O2 Delivery O2 Flow Rate FiO2 06/04/24 09:37 149/74 06/04/24 09:00 97.9 68 17 93 97.9 06/04/24 08:00 Room Air* 0 21 Total Intake and Output 06/03/24 06/03/24 06/04/24 15:00 23:00 07:00 Intake Total 1875.00 ml 900 ml Balance 1875.00 ml 900 ml medications Current Medications Medications Dose Ordered Sig/Fatmata Route Start Time Stop Time Status Last Admin Dose Admin Enoxaparin Sodium 40 mg DAILY SC 06/03/24 10:00 06/04/24 09:38 40 MG Aspirin 81 mg DAILY PO 06/03/24 10:00 06/04/24 09:37 81 MG Atorvastatin Calcium 40 mg HS PO 06/03/24 22:00 06/03/24 22:04 40 MG Vancomycin HCl 0 ml @ 0 mls/hr UD IV 06/03/24 01:45 Piperacillin Sod/ Tazobactam Sod 100 ml @ 25 mls/hr Q8HR IV 06/03/24 06:00 06/04/24 05:36 25 MLS/HR Pantoprazole Sodium 40 mg DAILY IV 06/03/24 10:00 06/04/24 09:38 40 MG Sodium Chloride 1,000 ml @ 75 mls/hr [id number] IV 06/03/24 01:45 06/03/24 16:08 75 MLS/HR Acetaminophen 500 mg Q4HPRN PRN PO 06/03/24 07:30 Acetaminophen/ Hydrocodone Bitart 1 tab Q4HPRN PRN PO 06/03/24 07:30 Acetaminophen 650 mg Q6HP PRN PO 06/03/24 07:30 Amlodipine Besylate 5 mg DAILY PO 06/04/24 10:00 06/04/24 09:37 5 MG Losartan Potassium 50 mg DAILY PO 06/04/24 10:00 06/04/24 09:37 50 MG Levothyroxine Sodium 100 mcg QAM@0600 PO 06/04/24 06:00 06/04/24 05:36 100 MCG Ergocalciferol 50,000 unit Q7D PO 06/03/24 17:30 06/03/24 18:00 50,000 UNIT Hydralazine HCl 10 mg Q6HP PRN IV 06/04/24 04:45 Vancomycin HCl 150 ml @ 150 mls/hr Q12H IV 06/04/24 15:00 Examination Patient lying in bed, in no acute distress General: Obese, afebrile, palor, mucosae are moist Cardiovascular: Regular S1 and S2. No murmurs, gallops or rubs. No JVD elevation. 1+ pitting edema bilaterally Respiratory: Normal B/L air entry on room air. Clear lung sounds on auscultation Abdomen: Soft, nontender, nondistended, normoactive bowel sounds, no rebound tenderness, no organomegaly, no masses Genitourinary: Deferred MSK/skin: Mobilizes 4 limbs. Skin is dry and warm Neurological: No motor, no sensitive deficits, normal speech. Pupils are isocoric and reactive. Psych/Mental Status: A/Ox3 laboratory and microbiology Laboratory Tests 06/04/24 04:30 Test 06/04/24 04:30 Range/Units Serum Glucose 113 H 74-106 mg/dL Microbiology Date/Time Source Procedure Growth Status 06/03/24 04:33 Nose MRSA Screen - Final Complete 06/03/24 04:20 Voided Urine Urine Culture - Preliminary Resulted 06/02/24 21:40 Blood Blood Culture - Preliminary NO GROWTH AFTER 24 HOURS OF INCUBATION. Resulted Labs and/or images reviewed: Labs reviewed by me, Image(s) reviewed by me Problem List/Assessment/Plan Problem List/Assessment/Plan Acute metabolic encephalopathy likely secondary to sepsis Sepsis secondary to probable UTI versus gastroenteritis ? Pancreatic mass versus sepsis Head CT showed no acute intracranial abnormality. Ammonia, B12 within normal limits WBC uptrending to 19 with neutrophilic leukocytosis IV Zosyn starting 06/03 and IV vancomycin 06/02 IV NS running at 75 cc an hour Received 1 dose of IV cefepime 06/02 CT abdomen completed, showed Mild nonspecific fat stranding adjacent to the bilateral adrenal glands.Descending colon and Sigmoid diverticulosis without diverticulitis. 1.4 x 1.6 cm soft tissue density over the pancreatic tail. Contrast-enhanced MRI should be considered for further evaluation. Prelim blood culture is negative CEA unremarkable, AFP CEA 125 pending MRI abdomen completed No pancreatic tail lesion. There is mild diffuse atrophy of the pancreas with relative sparing of the parenchyma in the tail possibly corresponding to soft-tissue fullness and lesion in question seen on CT dated 06/03/2024. Hypertensive urgency NSTEMI type 2 Dyslipidemia 10 year ASCVD risk 11.5 Atorvastatin 40 mg daily Amlodipine 5 mg daily, losartan 50 mg daily Hypothyroidism Continue levothyroxine 100 mcg daily History of CVA Continue aspirin and atorvastatin Hypokalemia Supplemented Vitamin-D deficiency Supplemented Diet: Soft diet Lovenox 40 mg sc daily Plan discussed with patient in which all questions have been answered Goals of care with the patient for more than 20 minutes, full code status Case discussed with Dr. Baird Plan discussed with: Patient My Orders My Orders Orders - ELENA BOONE Procedure Category Date Status Time Kub Abdomen Single XY 06/03/24 Resulted View 16:06 Ca 125 (Serial) LAB 06/03/24 In Process 17:18 Carbohydrate Antigen LAB 06/03/24 In Process 19-9 Afp Serum Tumor Marker LAB 06/03/24 In Process 17:18 Ergocalciferol PHA 06/03/24 In Process (Vitamin D 50,000 17:30 Mri Abdomen W And Wo MRI 06/04/24 Resulted 17:18 Vancomycin,Trough LAB 06/04/24 Logged 14:53 Date of Service: Jun 04, 2024 Billing Provider: JOSE BAIRD DO Common Visit Codes: [id number] INP/OBS CARE(HIGH) ELENA BOONE RESIDENT Jun 04, 2024 15:09 JOSE BAIRD DO Jun 06, 2024 17:46
[2024-06-04] MEDS: VANCOMYCIN 1GM/250ML KIT 250 ML IV SCH (17:00)
[2024-06-04] MEDS: POTASSIUM EFFERVESENT TAB 25 MEQ PO ONE (18:37)
[2024-06-04] MEDS: hydrALAZINE HCL 20 MG/ML VL IV PRN (21:58)
[2024-06-05 01:00] VITALS: BP 132/75; PULSE 64; RESP 20; TEMP 97.9; O2SAT 96
[2024-06-05 08:00] VITALS: PULSE 61
[2024-06-05 08:07] LABS: AFP Serum Tumor Marker 2.1 ng/mL (0.0-9.2); Cancer Antigen (CA) 125 8.5 U/mL (0.0-38.1)
[2024-06-05 08:21] VITALS: PULSE 57; RESP 20; O2SAT 96
[2024-06-05 08:35] VITALS: BP 161/74; PULSE 57; RESP 20; TEMP 98; O2SAT 96
[2024-06-05 11:34] LABS: Basophils # (auto) 0.1 10 ^3/uL (0-0.2); Eosinophils # (auto) 0.2 10 ^3/uL (0-0.8); Eosinophils % (auto) 2.9 % (0.0-7.0); Hematocrit 36.7 % (36.0-46.0); Hemoglobin 12.2 g/dL (12.2-16.2); Lymphocytes # (auto) 2.5 10 ^3/uL (0.4-5.4); Lymphocytes % (auto) 30.2 % (10.0-50.0); Mean Corpuscular Hemoglobin 29.6 pg (28.0-32.0); Mean Corpuscular Hgb Conc. 33.3 g/dL (32.0-36.0); Monocytes # (auto) 0.9 10 ^3/uL (0-1.3); Monocytes % (auto) 10.3 % (0.0-12.0); Neutrophils # (auto) 4.6 10 ^3/uL (1.6-8.6); Neutrophils % (auto) 55.6 % (37.0-80.0); Nucleated Red Blood Cells % 0.2 %; Platelet Count (auto) 302 10^3/uL (140-450); Red Blood Cells 4.12 10^6/uL (4.0-5.20); Red Cell Distribution Width 14.1 % (11.8-14.3); White Blood Cell 8.3 10^3/uL (4.4-10.8)
--- NOTE | 2024-06-05 11:34 | DVHSR ---
APPROVED REPORT EXAM: Two-dimensional and M-mode echocardiogram with Doppler and color Doppler. Blood Pressure: 109/51 mmHg INDICATION HF? RISK FACTORS Obesity: Height: 5'3, Weight: 184 DIMENSIONS LVDd3.6 (3.8-5.7cm)LA (2D)3.9 (1.9-4.0cm)Aortic Root2.9 (2.0-3.7cm) LVDs2.7 (2.5-4.0cm)LA (MM) (1.9-4.0cm)Aortic Cusp Exc1.7 (1.5-2.0cm) EF (%) 55.0 (55-70%)Rt. Atrium5.3 (1.9-4.0cm)Asc. Aorta cm IVSd1.1 (0.7-1.1cm)RV (D)4.8 (1.8-2.4cm) PWd1.3 (0.7-1.1cm) Mitral Valve MitralMitral Stenosis E wave0.78m/sMV Mean GR.mmHg A wave1.01m/sMV Peak GR.mmHg E/A ratio0.82D MVAcm2 DECEL [id number] 1/2 [place] Aortic Valve Aortic ValveAortic Stenosis V11.05m/[place] Mean GR.5mmHg V21.54m/[place] Peak GR.9mmHg LVOT Diameter2.0 (1.8-2.4cm)Doppler AVA2.14cm2 Pulmonic Valve V20.85m/s Tricuspid Valve TR Velocity2.33m/s [id number] Conclusion Sinus bradycardia. Technically limited study. Difficult acoustic windows. Mild concentric LVH. Right atrial and right ventricular enlargement of mild degree. Left atrial enl argement. Valves are normal. Normal tricuspid aortic and mitral valve. The pulmonic valve clearly visualized. Left ventricular systolic performance is normal at 60%. RV function appears normal. Moderate TR. RVSP of 40. No pericardial effusion masses or vegetations. Small pericardial fat pad noted.
[2024-06-05 12:44] VITALS: BP 153/76; PULSE 53; RESP 20; TEMP 98; O2SAT 95
[2024-06-05] MEDS ORDERED: DOXY50CA PO (12:53)
[2024-06-05] MEDS ORDERED: CIPR-173 PO (12:53)
[2024-06-05 13:08] VITALS: BP 148/77; PULSE 56; RESP 19; TEMP 98.3; O2SAT 98
--- NOTE | 2024-06-05 14:08 | DVHDSRES ---
Discharge Summary Date of Admission Resident Creating Document: EDER BALLARD RESIDENT Jun 03, 2024 at 01:34 Date of Discharge: Jun 05, 2024 Admitting Diagnosis Sepsis likely secondary to probable UTI/ gastroenteritis Labs/Diagnostic Data: Laboratory Results Test 06/05/24 04:53 06/04/24 15:38 06/04/24 04:30 06/03/24 19:14 White Blood Count 8.3 10^3/uL (4.4-10.8) Red Blood Count 4.12 10^6/uL (4.0-5.20) Hemoglobin 12.2 g/dL (12.2-16.2) Hematocrit 36.7 % (36.0-46.0) Mean Corpuscular Volume 89.0 fL (80.0-100.0) Mean Corpuscular Hemoglobin 29.6 pg (28.0-32.0) Mean Corpuscular Hemoglobin Concent 33.3 g/dL (32.0-36.0) Red Cell Distribution Width 14.1 % (11.8-14.3) Platelet Count 302 10^3/uL (140-450) Mean Platelet Volume 8.0 fL (6.9-10.8) Neutrophils (%) (Auto) 55.6 % (37.0-80.0) Lymphocytes (%) (Auto) 30.2 % (10.0-50.0) Monocytes (%) (Auto) 10.3 % (0.0-12.0) Eosinophils (%) (Auto) 2.9 % (0.0-7.0) Basophils (%) (Auto) 1.0 % (0.0-2.0) Neutrophils # (Auto) 4.6 10 ^3/uL (1.6-8.6) Lymphocytes # (Auto) 2.5 10 ^3/uL (0.4-5.4) Monocytes # (Auto) 0.9 10 ^3/uL (0-1.3) Eosinophils # (Auto) 0.2 10 ^3/uL (0-0.8) Basophils # (Auto) 0.1 10 ^3/uL (0-0.2) Nucleated Red Blood Cells 0.2 % Creatinine 0.76 mg/dL (0.550-1.02) Glomerular Filtration Rate Calc 87 mL/min (>90) C-Reactive Protein High Sensitivity 8.33 mg/dL (<1.0) Vancomycin Level Trough 9.7 ug/mL (5-10) Sodium Level 143 mmol/L (136-145) Potassium Level 3.5 mmol/L (3.5-5.1) Chloride Level 114 mmol/L (98-107) Carbon Dioxide Level 22 mmol/L (20-31) Anion Gap 7 (5-15) Blood Urea Nitrogen 7 mg/dL (9-23) BUN/Creatinine Ratio 8.5 (10.0-20.0) Serum Glucose 113 mg/dL (74-106) Calcium Level 9.8 mg/dL (8.7-10.4) Magnesium Level 2.2 mg/dL (1.6-2.6) Total Bilirubin 0.6 mg/dL (0.2-1.0) Aspartate Amino Transferase (AST) 51 U/L (13-40) Alanine Aminotransferase (ALT) 64 U/L (7-40) Alkaline Phosphatase 146 U/L (46-116) Total Protein 6.4 g/dL (5.7-8.2) Albumin 3.8 g/dL (3.2-4.8) Tumor Marker Alpha Fetoprotein 2.1 ng/mL (0.0-9.2) CA 19-9 Antigen 16 U/mL (0-35) CA 125 Antigen 8.5 U/mL (0.0-38.1) Test 06/03/24 04:33 06/03/24 04:32 06/03/24 04:20 06/03/24 01:58 Influenza Type A Antigen Negative (Negative) Influenza Type B Antigen Negative (Negative) SARS-CoV-2 Antigen (Rapid) Negative (NEGATIVE) Urine Color Yellow (Yellow) Urine Clarity Clear (Clear) Urine pH 6.0 (5.0-9.0) Urine Specific [place] 1.023 (1.001-1.035) Urine Protein 1+ (Negative) Urine Ketones 1+ (Negative) Urine Blood Negative /uL (Negative) Urine Nitrite Negative (Negative) Urine Bilirubin Negative (Negative) Urine Urobilinogen Normal mg/dL (Negative) Urine Leukocyte Esterase Trace /uL (Negative) Urine RBC 2 /hpf (0 - 4) Urine Microscopic WBC 4 /HPF (0-5) Urine Squamous Epithelial Cells Few /hpf (<5) Urine Bacteria /hpf (None Seen) Urine Mucus Few (None Seen) Urine Glucose Normal mg/dL (Normal) Urine Opiates Screen Pos (NEGATIVE) Urine Fentanyl Screen Neg (NEGATIVE) Urine Barbiturates Screen Neg (NEGATIVE) Urine Phencyclidine Screen Neg (NEGATIVE) Urine Amphetamines Screen Neg (NEGATIVE) Urine Benzodiazepines Screen Neg (NEGATIVE) Urine Cocaine Screen Neg (NEGATIVE) Urine Cannabinoids Screen Neg (NEGATIVE) Hemoglobin A1c 5.6 % A1C (<5.7) Ammonia 13 umol/L (11-32) Carcinoembryonic Antigen 1.55 ng/mL (<=5.0) Vitamin B12 Level 576 pg/mL (211-911) Vitamin D 25-Hydroxy 11.9 ng/mL (30.0-100) Thyroid Stimulating Hormone (TSH) 3.86 uIU/mL (0.55-4.78) Test 06/03/24 00:15 06/02/24 23:47 06/02/24 21:40 06/02/24 20:58 Triglycerides Level 118 mg/dL (< 150) Cholesterol Level 213 mg/dL (< 200) LDL Cholesterol 149 mg/dL (< 100) HDL Cholesterol 44 mg/dL (40-59) Troponin I High Sensitivity 76 ng/L (</=34) Lactic Acid Level 1.7 mmol/L (0.4-2.0) POC Glucose 143 mg/dl (70-106) Other Laboratory Tests 06/05/24 04:53 06/04/24 04:30 Brief Hx & Hospital Course: 63-year-old female with past medical history of CVA, hypertension, hypothyroidism, dyslipidemia presented with confusion, shortness of breath, chest pain, and elevated blood pressure (178/100 mmHg). She was febrile at 100.1F on arrival, with WBC of 15 trending up to 19 and then trending down at DC. She was started on IV Zosyn (06/03) and IV vancomycin (06/02), as well as IV fluids. Blood cultures were negative. CT head ruled out intracranial process. CT abdomen showed mild nonspecific fat stranding near bilateral adrenal glands and sigmoid diverticulosis without diverticulitis. Soft tissue density over pancreatic tail was seen (1.4 x 1.6 cm); MRI abdomen showed mild pancreatic atrophy with no suspicious tail lesion, likely benign. She improved clinically with antibiotics, tolerated diet, remained hemodynamically stable, and was deemed safe for discharge. General: Obese, afebrile, palor, mucosae are moist Cardiovascular: Regular S1 and S2. No murmurs, gallops or rubs. No JVD elevation. 1+ pitting edema bilaterally Respiratory: Normal B/L air entry on room air. Clear lung sounds on auscultation Abdomen: Soft, nontender, nondistended, normoactive bowel sounds, no rebound tenderness, no organomegaly, no masses Genitourinary: Deferred MSK/skin: Mobilizes 4 limbs. Skin is dry and warm Neurological: No motor, no sensitive deficits, normal speech. Pupils are isocoric and reactive. Psych/Mental Status: A/Ox3 Case discussed with Dr Baird Operations or Procedures History: MASS ON PANCREATIC TAIL F/U FROM CT Technique: Multisequence multiplanar MRI images were obtained of the abomen. Multiphasic imaging obtained without and with intravenous contrast. Findings: Liver: Mild hepatic steatosis. Hepatomegaly. Spleen: Unremarkable. Pancreas: No pancreatic tail lesion. There is mild diffuse atrophy of the pancreas with relative sparing of the parenchyma in the tail possibly corresponding to soft-tissue fullness seen on CT. Gallbladder and ducts: Post cholecystectomy. The cystic duct, right and left hepatic ducts, common hepatic duct, and common bile ducts are unremarkable. The pancreatic duct is within normal limits. Adrenal glands: Unremarkable. Kidneys: Normal enhancement without suspicious lesions or hydronephrosis. Visualized bowel: Grossly unremarkable. Vasculature: Unremarkable. Lymphadenopathy: No evidence for lymphadenopathy. Ascites: Absent. Musculoskeletal: Bone marrow signal is normal. IMPRESSION: No pancreatic tail lesion. There is mild diffuse atrophy of the pancreas with relative sparing of the parenchyma in the tail possibly corresponding to soft- tissue fullness and lesion in question seen on CT dated 06/03/2024. Exam: CT CT AB PEL WO CON-NO ORAL OR IV History: sirs/sepsis Comparison Study: None available at time of dictation. TECHNIQUE: Multidetector CT of the abdomen and pelvis without IV contrast. Axial, coronal and sagittal multiplanar reformats were obtained from the axial data set by the technologist. Radiation Dose Information: CT Dose: CTDI volume is 15.52 mGy. Dose-length product is 872.47 mGy*cm FINDINGS: Bibasilar atelectasis. Mild cardiomegaly. Status post cholecystectomy. Mild hepatomegaly. Otherwise, liver, and spleen unremarkable. Mild nonspecific fat stranding adjacent to the adrenal glands. Otherwise adrenal glands unremarkable. There is mild fatty infiltration of the pancreas with a 1.4 x 1.6 cm soft tissue density over the pancreatic tail. Mild nonspecific bilateral perirenal fat stranding. No hydronephrosis bilaterally. No renal calculi bilaterally. Bilateral ureters and urinary bladder are unremarkable. Uterus and adnexa are unremarkable. Stomach is unremarkable. Small bowel loops unremarkable. Appendix is unremarkable. Descending colon and Sigmoid diverticulosis without diverticulitis. No evidence of intraperitoneal free air or free fluid. No evidence of aortic aneurysm. [id number] atherosclerotic calcification of the aorta and bilateral iliacs. No significant lymphadenopathy. Small fat containing umbilical hernia. Mild fat stranding with subcutaneous emphysema of the right ventral mid abdominal subcutaneous fat. Bilateral L5 chronic pars defect. No destructive osseous lesions noted. IMPRESSION: No evidence of acute abdominopelvic abnormalities. Mild nonspecific fat stranding adjacent to the bilateral adrenal glands. Descending colon and Sigmoid diverticulosis without diverticulitis. 1.4 x 1.6 cm soft tissue density over the pancreatic tail. Contrast-enhanced MRI should be considered for further evaluation. Condition at Discharge: Stable Final Diagnosis/Problems List Acute metabolic encephalopathy likely secondary to sepsis Sepsis likely secondary to probable UTI/ gastroenteritis Pancreatic tail lesion benign features on imaging Hypertensive urgency NSTEMI Type 2 Dyslipidemia Hypothyroidism History of CVA Hypokalemia (resolved) Vitamin D deficiency (supplemented) Discharge Disposition: Home Discharge Instruct/Medications Diet: Cardiac 2g Na,low cholest Activity: Light activity Follow Up/Referral: dc clinic Medications: see prescription Discharge Statement: "Patient was advised to return to the ER or call 911 if any headaches, dizziness, shortness of breath, chest pain, abdominal pain, bleeding, fevers, or worsening of medical condition. Patient was counseled about treatment plan, medications, possible side effects, patientverbalized understanding. All questions were answered to the best of my ability. This discharge took greater then 30 minutes in planning, reviewing documentation, counseling the patient, and discussing with other team members." ASSESSMENT ASSESSMENT Assessment UTI resolved gastroenteritis Date of Service: Jun 05, 2024 Billing Provider: JOSE BAIRD DO Common Visit Codes: 44523-COI/OBS DISCH DAY >30min EDER BALLARD RESIDENT Jun 05, 2024 14:08 JOSE BAIRD DO Jun 09, 2024 07:44
== END 2024-06-05 13:30 | disposition home or self-care (01) | DRG 871 ==
LOC: ER 20:52 → OVERFLOW 06-03 01:34 → TELE-WESTW 06-03 03:34
PROVIDERS: ADMIT Internal Medicine; ATTEND Emergency Medicine
DX: A41.9 Sepsis, unspecified organism (principal); G93.41 Metabolic encephalopathy; I21.A1 Myocardial infarction type 2; N39.0 Urinary tract infection, site not specified; I16.0 Hypertensive urgency; E03.9 Hypothyroidism, unspecified; E78.5 Hyperlipidemia, unspecified; I10 Essential (primary) hypertension; K86.89 Other specified diseases of pancreas; E55.9 Vitamin D deficiency, unspecified; I25.10 Atherosclerotic heart disease of native coronary artery without angina pectoris; Z20.822 Contact with and (suspected) exposure to COVID-19; K57.30 Diverticulosis of large intestine without perforation or abscess without bleeding; K52.9 Noninfective gastroenteritis and colitis, unspecified; E87.6 Hypokalemia; E66.9 Obesity, unspecified; K86.9 Disease of pancreas, unspecified; Z79.899 Other long term (current) drug therapy; Z86.73 Personal history of transient ischemic attack (TIA), and cerebral infarction without residual deficits; Z68.33 Body mass index [BMI] 33.0-33.9, adult
CPT/HCPCS: 36415; 70450; 71045; 74018; 74176; 74183; 80048; 80053; 80061; 80202; 80307; 81001; 82105; 82140; 82306; 82378; 82565; 82607; 82962; 83036; 83605; 83735; 84443; 84484; 85025; 86141; 86301; 86304; 87040; 87081; 87086; 87426; 87804; 93005; 93306; 96361; 96365; 96367; 96375; 99291; G0378; J0692; J2405; J2470; J2543; J3490